=== PATIENT | male | born 1960 | race Caucasian/White ===

== ENCOUNTER 2018-09-12 17:44 | Emergency (ER) | payer BC ==
[2018-09-12 17:53] VITALS: BP 120/68
--- NOTE | 2018-09-12 18:21 | EDM.PDOC ---
ED HPI GENERAL MEDICAL PROBLEM - General Chief Complaint: General Stated Complaint: ABNORMAL LABS Time Seen by Provider: 09/12/18 17:56 Source of Information: Reports: Patient, RN Notes Reviewed History Limitations: Reports: No Limitations - History of Present Illness INITIAL COMMENTS - FREE TEXT/NARRATIVE: Patient is a 58 year old male who presents to the ED for the evaluation of some abnormal labs. He was seen yesterday at [facility] for a dental problem. He has a tooth in his left lower jaw that has been bothering him. They iza blood cultures and it was positive for G+ cocci in clusters, his CRP was elevated at 33, but had a normal WBC. He states that this has been an ongoing problem for him but the tooth has been really bothersome since Sunday. He states that he has had a low grade fever of 100.6 deg F earlier today, he did take some Tylenol and it decreased to 98 deg F. He was put on Amoxicillin 500mg TID yesterday by Dr. Juan Carlos Huynh. He states that he has had maybe 4 doses of this medication. He denies having any difficulty swallowing, but he has not been eating much because it is painful to chew on the affected tooth. This is located in his left lower jaw towards the front. He denies any chest pain, shortness of breath, nausea/vomiting/diarrhea, abdominal pain or difficulty swallowing. He states his pain tonight is at a 0/10 on the pain scale. - Related Data Allergies Allergy/AdvReac Type Severity Reaction Status Date / Time No Known Allergies Allergy Verified 09/12/18 17:53 Home Meds: Home Meds Amoxicillin 0 mg PO TID 09/12/18 [History] Olmesartan/Hydrochlorothiazide [Olmesartan-Hctz 40-25 mg Tab] 1 each PO DAILY [History] Past Medical History - Past Health History Medical/Surgical History: Denies Medical/Surgical History HEENT History: Reports: Other (See Below) Other HEENT History: abcessed tooth Cardiovascular History: Reports: Hypertension Social & Family History - Family History Family Medical History: Noncontributory - Tobacco Use Smoking Status *Q: Never Smoker - Caffeine Use Caffeine Use: Reports: Soda - Recreational Drug Use Recreational Drug Use: No - Living Situation & Occupation Living situation: Reports: , with Family Occupation: Employed ED ROS GENERAL - Review of Systems Review Of Systems: See Below Constitutional: Reports: Fever, Chills. Denies: Fatigue HEENT: Reports: Dental Pain. Denies: Throat Pain, Throat Swelling Respiratory: Reports: No Symptoms Cardiovascular: Reports: No Symptoms Endocrine: Reports: No Symptoms GI/Abdominal: Reports: No Symptoms : Reports: No Symptoms Musculoskeletal: Reports: No Symptoms Skin: Reports: No Symptoms Neurological: Reports: No Symptoms Psychiatric: Reports: No Symptoms Hematologic/Lymphatic: Reports: No Symptoms Immunologic: Reports: No Symptoms ED EXAM, GENERAL - Physical Exam Exam: See Below Exam Limited By: Intoxication General Appearance: Alert, WD/WN, Moderate Distress Eye Exam: Bilateral Eye: Normal Inspection Ears: Normal External Exam Nose: Normal Inspection Throat/Mouth: Normal Inspection, Normal Oropharynx, No Airway Compromise, Other (dentition is in poor repair, there is some mild erythema and swelling of the lower gum line around the frontal lateral aspect of the left lower incisor.) Head: Atraumatic Neck: Normal Inspection, Supple, Non-Tender, Full Range of Motion Respiratory/Chest: No Respiratory Distress, Lungs Clear, Normal Breath Sounds, No Accessory Muscle Use, Chest Non-Tender Cardiovascular: Normal Peripheral Pulses, Regular Rate, Rhythm, No Edema, No Murmur GI/Abdominal: Normal Bowel Sounds, Soft, Non-Tender, No Distention Extremities: Normal Inspection, Normal Capillary Refill Neurological: Alert, Oriented, Normal Cognition, No Motor/Sensory Deficits Psychiatric: Normal Affect, Normal Mood Skin Exam: Warm, Dry, Intact, Normal Color, No Rash Course - Vital Signs Last Recorded V/S: Last Vital Signs Temp 97 F 09/12/18 17:50 Pulse 95 09/12/18 17:50 Resp 18 09/12/18 17:50 BP 120/68 09/12/18 17:50 Pulse Ox 95 09/12/18 17:50 - Orders/Labs/Meds Labs: Laboratory Tests 09/12/18 09/12/18 Range/Units 18:00 18:00 WBC 5.95 (4.23-9.07) K/mm3 RBC 6.05 (4.63-6.08) M/mm3 Hgb 17.2 (13.7-17.5) gm/L Hct 50.2 (40.1-51.0) % MCV 83.0 (79.0-92.2) fl MCH 28.4 (25.7-32.2) pg MCHC 34.3 (32.2-35.5) g/dl RDW Std Deviation 40.9 (35.1-43.9) fL Plt Count 215 (163-337) K/mm3 MPV 9.2 L (9.4-12.3) fl Neutrophils % (Manual) 77 H (40-60) % Band Neutrophils % 1 (0-10) % Lymphocytes % (Manual) 16 L (20-40) % Atypical Lymphs % 0 % Monocytes % (Manual) 6 (2-10) % Eosinophils % (Manual) 0 L (0.8-7.0) % Basophils % (Manual) 0 L (0.2-1.2) Platelet Estimate Adequate RBC Morph Comment Normal C-Reactive Protein 14.9 H* (<1.0) mg/dL Meds: Medications Discontinued Medications Generic Name Dose Route Start Last Admin Trade Name Freq PRN Reason Stop Dose Admin Sodium Chloride 1,000 mls @ 999 mls/hr 09/12/18 20:23 09/12/18 20:27 Normal Saline IV 09/12/18 21:23 999 mls/hr ONETIME ONE Administration - Re-Assessments/Exams Free Text/Narrative Re-Assessment/Exam: 09/12/18 18:24 Pt presents to the ED for the evaluation of abnormal labs and dental abscess. He did have 1 positive blood culture, which grew G+ cocci in clusters. I have ordered another CBC and CRP for initial evaluation and management. He has been prescribed appropriate antibiotics, and he does not appear to be in much distress at this time. It is doubtful whether he will need IV antibiotics due to his status 09/12/18 19:10 RN did inform me the that the pt's blood pressure was a little low, However he was started on a blood pressure medication yesterday, but cannot remember the name or dosage of this medication. I will advise him to not take his PM dose ( if there is one) and AM dose tomorrow and follow up with his PCP for maybe a dose decrease. I will advise him to keep taking the amoxicillin as prescribed and give him a list of dentists for referral for definitive care. 09/12/18 19:26 The patient is going to call and see if he can get the name of the BP med he started, so we may recommendations on the decrease of this or not. He says he only takes this once daily, and started yesterday. 09/12/18 20:00 Pt did find the name of his BP medication and dosage. This was olmesartan/HCTZ 40/12.5. It was further discussed that at his appointment yesterday he had a single occurrence of a BP that was in the 160s systolically, so he was put on the BP medication. I recommended that he stop taking the medication and that he keep a BP journal over the weekend and f/u with his PCP on Sunday. His BPs in the ED systolically were high 80s-low 100s and he did have some lightheadedness/ dizziness as he was being discharged. So we did give a bolus of fluids to help with this. Departure - Departure Time of Disposition: 19:14 Disposition: Home, Self-Care 01 Condition: Fair Clinical Impression: Abnormal laboratory test - Discharge Information *PRESCRIPTION DRUG MONITORING PROGRAM REVIEWED*: No *COPY OF PRESCRIPTION DRUG MONITORING REPORT IN PATIENT SANDOR: No Referrals: Juan Carlos Romano MD [Primary Care Provider] - Forms: ED Department Discharge Additional Instructions: You have been evaluated in the ED for your abnormal lab values and dental problem. Your labs in the ED did not demonstrate an elevated white blood cell count and also it shows that the inflammation associated with infection has decreased from yesterday. Please keep taking your antibiotics as prescribed until it is gone. Recommend not taking your new blood pressure medication through the weekend and keeping a blood pressure journal to monitor your blood pressure, and following up with your primary care provider early next week for a dose decrease or change in medication, as your BP in the ER tonight was a little low. Please return to the ED if your symptoms change or worsen.
[2018-09-12] MEDS ORDERED: Sodium Chloride 0.9% 1,000 ML IV ONE (20:23)
== END 2018-09-12 21:05 | disposition home or self-care (01) ==
LOC: JD.ED 17:44
DX: R79.9 Abnormal finding of blood chemistry, unspecified (principal); I10 Essential (primary) hypertension; Z79.899 Other long term (current) drug therapy
CPT/HCPCS: 36415; 85007; 85027; 86140; 96360; 99283; J7040